=== PATIENT | female | born 1955 | race American Indian/Alaskan Native ===

== ENCOUNTER 2017-03-17 16:08 | Emergency (ER) | payer OTHER ==
[2017-03-17 16:37] VITALS: RESP 18
--- NOTE | 2017-03-17 17:22 | C.PDOC ---
History Of Present Illness Ricki Arriaga is a 61 year old female, with a past medical history of hypertension and osteoporosis, who presents to the emergency department complaining of right ankle pain radiating to leg associated with swelling onset for 3 days. Patient states she does a lot of walking at work. She denies any fever, chills, trauma, or fall. Patient didn't take any pain medication today. No further medical complaints. PMD: Jovanny White Time Seen by Provider: 03/17/17 16:58 Chief Complaint (Nursing): Lower Extremity Problem/Injury History Per: Patient History/Exam Limitations: no limitations Onset/Duration Of Symptoms: Days (x3) Current Symptoms Are (Timing): Still Present Severity: Mild - Ankle/Foot Description Of Injury: denies: Fell Past Medical History Reviewed: Historical Data, Nursing Documentation, Vital Signs Vital Signs: Last Vital Signs Temp 98.1 F 03/17/17 17:56 Pulse 82 03/17/17 17:56 Resp 18 03/17/17 16:35 BP 160/92 H 03/17/17 17:56 Pulse Ox 99 03/17/17 21:50 - Medical History PMH: HTN, Hypercholesterolemia, Hypothyroidism, Osteoporosis Denies: Chronic Kidney Disease Family History: States: No Known Family Hx - Social History Hx Tobacco Use: Yes Hx Alcohol Use: Yes (occasional beer) Hx Substance Use: No - Immunization History Hx Tetanus Toxoid Vaccination: No Hx Influenza Vaccination: No Hx Pneumococcal Vaccination: No Review Of Systems Except As Marked, All Systems Reviewed And Found Negative. Constitutional: Negative for: Fever, Chills Musculoskeletal: Positive for: Foot Pain (right ankle ) Physical Exam - Physical Exam Appears: Well, Non-toxic, No Acute Distress Skin: Normal Color, Warm, Dry Head: Atraumatic, Normacephalic Eye(s): bilateral: Normal Inspection, PERRL, EOMI Ear(s): Bilateral: Normal Extremity: No Normal ROM, Tenderness (to right medial ankle), Capillary Refill ( <2 sec), Swelling (to right inner ankle) Pulses: Left Dorsalis Pedis: Normal, Right Dorsalis Pedis: Normal Neurological/Psych: Oriented x3, Normal Speech, Normal Motor, Normal Sensation ED Course And Treatment O2 Sat by Pulse Oximetry: 99 (RA) Pulse Ox Interpretation: Normal - Other Rad right ankle X-Ray: Interpreted by Me, Read By Radiologist Interpretation: no acute fx or dislocation, +spur Medical Decision Making Medical Decision Making: Initial Plan: --Motrin Tab 600 mg PO Scribe Attestation The documentation for this encounter was entered by Lucien Medina acting as a scribe for iRtu ZAMORANO All medical record entries made by the Scribe were at my direction and personally dictated by me. I have reviewed the chart and agree that the record accurately reflects my personal performance of the history, physical exam, medical decision making, and the department course for this patient. I have also personally directed, reviewed, and agree with the discharge instructions and disposition. Disposition Counseled Patient/Family Regarding: Studies Performed, Diagnosis, Need For Followup, Rx Given - Disposition Referrals: Jovanny White MD [Staff Provider] - Elham Andujar MD [Staff Provider] - Disposition: HOME/ ROUTINE Disposition Time: 17:32 Condition: STABLE Additional Instructions: FOLLOW UP WITH PMD FOR RE-EVALUATION AND OFFICIAL XRAY REPORT ON SUNDAY. ANKLE BRACE FOR COMFORT. IF SYMPTOMS PERSIST FOLLOW UP WITH ORTHOPEDIST DR. ANDUJAR. IF ANY CONCERNING SYMPTOMS DEVELOP RETURN TO ED. Prescriptions: Ibuprofen [Motrin Tab] 1 tab PO Q6H PRN #15 tab PRN Reason: Pain, Moderate (4-7) Instructions: Ankle Sprain (ED) Forms: [facility] (Arabic), Work Excuse - Clinical Impression Clinical Impression: Ankle strain
[2017-03-17 17:56] VITALS: BP 160/92; PULSE 82; TEMP 98.1
[2017-03-17 17:58] VITALS: O2SAT 99
--- NOTE | 2017-03-17 18:03 | RAD ---
PROCEDURE: Right Ankle Radiographs. HISTORY: pain COMPARISON: None FINDINGS: BONES: There is calcaneus spur. JOINTS: Normal. No osteoarthritis. Ankle mortise maintained. Talar dome intact SOFT TISSUES: Mild soft tissue swelling seen. OTHER FINDINGS: None. IMPRESSION: No evidence of acute fracture or dislocation. Mild soft tissue swelling. Calcaneal spur.
== END 2017-03-17 18:00 | disposition home or self-care (01) ==
LOC: C.ER 16:08
DX: S96.911A Strain of unspecified muscle and tendon at ankle and foot level, right foot, initial encounter (principal); X50.0XXA Overexertion from strenuous movement or load, initial encounter; Y93.89 Activity, other specified; Y92.89 Other specified places as the place of occurrence of the external cause